=== PATIENT | female | born 1975 | race Caucasian/White ===

== ENCOUNTER → 2017-05-09 | Outpatient (CLI) | payer MEDICARE, OTHER ==
[~2017-05-09] MED LIST: ALPR-475 PO; DULO60CA7 PO; GABA300C10 PO; INDO25OR PO; NAPR250T PO; OXYC-302 PO; TOPI25CA5 PO
== END | disposition home or self-care (01) ==
LOC: CFH 09:31
PROVIDERS: ATTEND Nurse Practitioner Primary Care
DX: M53.82 Other specified dorsopathies, cervical region (principal); M43.16 Spondylolisthesis, lumbar region; M51.37 Other intervertebral disc degeneration, lumbosacral region
CPT/HCPCS: 72040; 72100

== ENCOUNTER → 2017-05-22 | Outpatient (CLI) | payer MEDICARE, OTHER | END | disposition home or self-care (01) | LOC: RAD 08:36 | PROVIDERS: ATTEND Nurse Practitioner Primary Care | DX: M50.222 Other cervical disc displacement at C5-C6 level (principal); M43.16 Spondylolisthesis, lumbar region; M51.16 Intervertebral disc disorders with radiculopathy, lumbar region | CPT/HCPCS: 72141; 72148 ==

== ENCOUNTER → 2017-06-25 | Outpatient (CLI) | payer MEDICARE, OTHER ==
[~2017-06-25] MED LIST changes: +GADOBUTROL 7.5 MMOL/7.5 ML PFS ONE
== END | disposition home or self-care (01) ==
LOC: RAD 07:15
PROVIDERS: ATTEND Psychiatry & Neurology Neurology
DX: I67.1 Cerebral aneurysm, nonruptured (principal); I67.82 Cerebral ischemia; G93.89 Other specified disorders of brain; G43.909 Migraine, unspecified, not intractable, without status migrainosus; R90.82 White matter disease, unspecified
CPT/HCPCS: 70553; A9585

== ENCOUNTER → 2017-07-16 | Outpatient (CLI) | payer MEDICARE, OTHER ==
[~2017-07-16] MED LIST changes: -GADOBUTROL 7.5 MMOL/7.5 ML PFS ONE
== END | disposition home or self-care (01) ==
LOC: CFH 12:40
PROVIDERS: ATTEND Obstetrics & Gynecology
DX: Z12.31 Encounter for screening mammogram for malignant neoplasm of breast (principal); Z80.3 Family history of malignant neoplasm of breast
CPT/HCPCS: 77063; 77067

== ENCOUNTER → 2017-07-17 | Outpatient (CLI) | payer MEDICARE, OTHER | END | disposition home or self-care (01) | LOC: CVU 13:26 | PROVIDERS: ATTEND Internal Medicine | DX: R10.31 Right lower quadrant pain (principal); M79.89 Other specified soft tissue disorders; R20.0 Anesthesia of skin; I97.89 Other postprocedural complications and disorders of the circulatory system, not elsewhere classified | CPT/HCPCS: 93922; 93926 ==

== ENCOUNTER → 2018-06-23 | Outpatient (CLI) | payer MEDICARE, OTHER | END | disposition home or self-care (01) | LOC: EDSTATUS 11:00 → CFH 11:02 | PROVIDERS: ATTEND Nurse Practitioner Primary Care | DX: M47.892 Other spondylosis, cervical region (principal); M50.222 Other cervical disc displacement at C5-C6 level | CPT/HCPCS: 72141 ==